=== PATIENT | female | born 1970 | race African-American/Black ===

== ENCOUNTER 2017-04-15 20:11 | Emergency (ER) | payer BC ==
[~2017-04-15] VITALS: Ht 160 cm; Wt 90.7 kg
[2017-04-15 20:30] VITALS: BP 134/93
[2017-04-15] MEDS ORDERED: LEVO500T59 PO (20:30)
[2017-04-15] MEDS ORDERED: HYDR-971 PO (20:30)
--- NOTE | 2017-04-15 20:30 | PHYS DOC ---
Adult General Chief Complaint Chief Complaint: SKIN PROBLEM HPI HPI Patient is a 47 year old female with a history of eczema and asthma presents to the ED complaining of rash to right side of face x 3 days. States it started on her cheek and is starting to spread. Describes the pain as sharp. Rates as 7/ 10. Associated symptoms include warmth and redness. States she has had similar symptoms in the past and last time her symptoms improved with antibiotics. States she just moved here. Denies swelling, laceration, chest pain, weakness, fever, tongue swelling, difficulty swallowing, or n/v. Review of Systems Review of Systems Constitutional: Denies fever or chills [] Eyes: Denies change in visual acuity, redness, or eye pain [] HENT: Denies nasal congestion or sore throat [] Respiratory: Denies cough or shortness of breath [] Cardiovascular: No additional information not addressed in HPI [] GI: Denies abdominal pain, nausea, vomiting, bloody stools or diarrhea [] : Denies dysuria or hematuria [] Musculoskeletal: Denies back pain or joint pain [] Integument: Complains of rash. Denies skin lesions [] Neurologic: Denies headache, focal weakness or sensory changes [] Endocrine: Denies polyuria or polydipsia [] All other systems were reviewed and found to be within normal limits, except as documented in this note. Allergies Allergies Allergies Coded Allergies Type Severity Reaction Last Updated Verified Sulfa (Sulfonamide Antibiotics) Allergy Unknown 04/15/17 Yes aspirin Allergy Unknown 04/15/17 Yes cephalexin Allergy Unknown 04/15/17 Yes corn Allergy Unknown 04/15/17 Yes ibuprofen Allergy Unknown 04/15/17 Yes latex Allergy Unknown 04/15/17 Yes Physical Exam Physical Exam Constitutional: Well developed, well nourished, no acute distress, non-toxic appearance. [] HENT: Normocephalic, atraumatic, bilateral external ears normal, oropharynx moist, no oral exudates, nose normal. [] Eyes: PERRLA, EOMI, conjunctiva normal, no discharge. [] Neck: Normal range of motion, no tenderness, supple, no stridor. [] Cardiovascular:Heart rate regular rhythm, no murmur [] Lungs & Thorax: Bilateral breath sounds clear to auscultation [] Skin: Warm, dry. MILD ERYTHEMATOUS, WARM, 3X2 CM AREA TO RIGHT CHEEK CONSISTENT WITH CELLULITIS. NO ABSCESS OR FLUCTUANCE. Neurologic: Alert and oriented X 3, normal motor function, normal sensory function, no focal deficits noted. [] Psychologic: Affect normal, judgement normal, mood normal. [] Current Patient Data Vital Signs Vital Signs Date Time Temp Pulse Resp B/P (MAP) Pulse Ox O2 Delivery O2 Flow Rate FiO2 04/15/17 20:30 98.5 97 18 134/93 (107) 97 Room Air 98.5 EKG EKG [] Radiology/Procedures Radiology/Procedures [] Course & Med Decision Making Course & Med Decision Making Pertinent Labs and Imaging studies reviewed. (See chart for details) Patient states she gets breaks in her skin due to her eczema which causes her to develop cellulitis. Tetanus up to date. Patient states last time she had the same symptoms she took levaquin from her PCP and that it relieved her symptoms. Discussed symptomatic treatment at home. Discussed follow-up and reasons to return to the ED. Patient understands and agrees with plan. at bedside. Dragon Disclaimer Dragon Disclaimer This electronic medical record was generated, in whole or in part, using a voice recognition dictation system. Departure Departure Impression: Primary Impression: Cellulitis Disposition: 01 HOME, SELF-CARE Condition: IMPROVED Referrals: BELKIS PRECIADO MD Patient Instructions: Cellulitis Scripts Hydrocodone/Apap 5-325 (NORCO 5-325 TABLET) 1 Each Tablet 1 TAB PO TID, #8 TAB Prov: KELVIN HERNANDEZ 04/15/17 Levofloxacin (LEVAQUIN) 500 Mg Tablet 1 TAB PO DAILY for 10 Days, #10 TAB Prov: KELVIN HERNANDEZ 04/15/17 KELVIN HERNANDEZ Apr 15, 2017 20:30
== END 2017-04-15 20:50 | disposition home or self-care (01) ==
LOC: ER 20:11
DX: L03.211 Cellulitis of face (principal); J45.909 Unspecified asthma, uncomplicated; Z88.2 Allergy status to sulfonamides; Z88.6 Allergy status to analgesic agent; Z91.040 Latex allergy status; Z91.018 Allergy to other foods
CPT/HCPCS: 99283

== ENCOUNTER 2017-06-04 12:26 | Inpatient (IN) | payer BC ==
[2017-06-04 13:21] LABS: ADD MAN DIFF? NO
[2017-06-04 13:25] LABS: BASO # 0.1 x10^3/uL (0.0-0.2); BASO % 1 % (0-3); EOS # 0.3 x10^3/uL (0.0-0.7); EOS % 2 % (0-3); HEMATOCRIT 38.6 % (36.0-47.0); HEMOGLOBIN 12.8 g/dL (12.0-15.5); LYMPH # 1.2 x10^3/uL (1.0-4.8); LYMPH % 10 % (24-48); MEAN CORPUSCULAR HEMOGLOBIN 30 pg (25-35); MEAN CORPUSCULAR HGB CONC 33 g/dL (31-37); MEAN CORPUSCULAR VOLUME 91 fL (79-100); MONO # 0.9 x10^3/uL (0.0-1.1); MONO % 8 % (0-9); NEUT % 80 % (31-73); PLATELET COUNT 291 x10^3/uL (140-400); RED BLOOD COUNT 4.24 x10^6/uL (3.50-5.40); RED CELL DISTRIBUTION WIDTH 13.9 % (11.5-14.5); WHITE BLOOD COUNT 12.4 x10^3/uL (4.0-11.0)
[2017-06-04] MEDS: ONDANSETRON PF 4 MG/2 ML VIAL. IV ×2 (13:29→23:40)
[2017-06-04] MEDS: fentaNYL PF VIAL 100 MCG/2 ML VIAL IV ×2 (13:30→15:44)
[2017-06-04 13:39] LABS: ANION GAP 8 (6-14); BLOOD UREA NITROGEN 21 mg/dL (7-20); BUN/CREATININE RATIO 26 (6-20); CALCIUM 8.6 mg/dL (8.5-10.1); CARBON DIOXIDE 29 mmol/L (21-32); CHLORIDE 103 mmol/L (98-107); CREATININE 0.8 mg/dL (0.6-1.0); GFR 92.6; GLUCOSE 70 mg/dL (70-99); POTASSIUM 3.9 mmol/L (3.5-5.1); SODIUM 140 mmol/L (136-145)
[2017-06-04 13:41] LABS: D-DIMER 0.41 ug/mlFEU (0.00-0.50)
[2017-06-04 13:42] LABS: ALBUMIN 3.6 g/dL (3.4-5.0); ALBUMIN/GLOBULIN RATIO 0.8 (1.0-1.7); ALK PHOS 72 U/L (46-116); ALT (SGPT) 41 U/L (14-59); AST (SGOT) 26 U/L (15-37); LIPASE 193 U/L (73-393); MAGNESIUM 1.9 mg/dL (1.8-2.4); TOTAL BILIRUBIN 0.9 mg/dL (0.2-1.0); TOTAL PROTEIN 7.9 g/dL (6.4-8.2)
[2017-06-04 13:45] LABS: BILIRUBIN,URINE NEGATIVE (NEG); CLARITY,URINE CLEAR; COLOR,URINE YELLOW; GLUCOSE,URINE NEGATIVE (NEG); NITRITE,URINE NEGATIVE (NEG); PROTEIN,URINE NEGATIVE (NEG-TRACE); UROBILINOGEN,URINE 0.2 mg/dL (0.2 mg/dL)
[2017-06-04 13:47] LABS: TROPONINI < 0.017 ng/mL (0.000-0.055)
[2017-06-04 13:51] LABS: NT-PRO BNP 57 pg/mL (0-124)
[2017-06-04 13:51] LABS: CKMB INDEX 0.3 % (0-4); CKMB MASS 0.6 ng/mL (0.0-3.6); CREATINE KINASE 175 U/L (26-192)
[2017-06-04 14:02] LABS: BACTERIA,URINE FEW /HPF (0-FEW); RBC,URINE 0 /HPF (0-2); SQUAMOUS EPITHELIAL CELL,UR FEW /LPF; WBC,URINE 0 /HPF (0-4)
[2017-06-04] MEDS ORDERED: fentaNYL PF VIAL 100 MCG/2 ML VIAL IV (16:30)
[2017-06-04] MEDS ORDERED: ONDANSETRON PF 4 MG/2 ML VIAL. IV (16:30)
[2017-06-04] MEDS: ACETAMINOPHEN 325 MG TABLET. PO (16:59)
[2017-06-04] MEDS ORDERED: hydrALAZINE 20 MG/ML VIAL. IVP (17:00)
[2017-06-04] MEDS ORDERED: traMADol 50 MG TABLET PO (17:00)
[2017-06-04] MEDS ORDERED: ACETAMINOPHEN 325 MG TABLET. PO (17:00)
[2017-06-04] MEDS ORDERED: DOCUSATE SODIUM 100 MG CAPSULE. PO (17:00)
[2017-06-04 17:41] LABS: THYROID STIM HORMONE (TSH) 1.042 uIU/mL (0.358-3.74)
[2017-06-04] MEDS: IV NORMAL SALINE 1000ML BAG 1,000 ML IV (17:52)
[2017-06-04 18:51] LABS: SEDIMENTATION RATE 25 (0-25)
[2017-06-04 19:55] LABS: TROPONINI < 0.017 ng/mL (0.000-0.055)
[2017-06-04] MEDS: ALBUTEROL SULFATE 2.5 MG/3 ML NEBU. NEB (20:00)
[2017-06-04] MEDS: BUDESONIDE 0.5 MG/2 ML NEBU. NEB (20:40)
[2017-06-04] MEDS: rOPINIRole 1 MG TABLET. PO (20:48)
[2017-06-04] MEDS: ZOLPIDEM 5 MG TABLET. PO (20:48)
[2017-06-04] MEDS ORDERED: NON FORMULARY ITEM (Fluticasone/Salmeterol (Advair 250-50 Diskus) 1 PUFF) IH (21:00)
[2017-06-04 22:41] LABS: TROPONINI < 0.017 ng/mL (0.000-0.055)
[2017-06-04] MEDS: MORPHINE SULFATE 2 MG/ML DISP.SYRIN. IV (23:31)
[2017-06-05] MEDS: IV NORMAL SALINE 1000ML BAG 1,000 ML IV ×2 (00:17→08:04)
[2017-06-05 05:53] LABS: ADD MAN DIFF? NO
[2017-06-05 06:12] LABS: BASO % 0 % (0-3); EOS # 0.1 x10^3/uL (0.0-0.7); EOS % 2 % (0-3); HEMATOCRIT 34.8 % (36.0-47.0); HEMOGLOBIN 11.6 g/dL (12.0-15.5); LYMPH # 0.9 x10^3/uL (1.0-4.8); LYMPH % 11 % (24-48); MEAN CORPUSCULAR HEMOGLOBIN 31 pg (25-35); MEAN CORPUSCULAR HGB CONC 34 g/dL (31-37); MEAN CORPUSCULAR VOLUME 91 fL (79-100); MONO # 0.8 x10^3/uL (0.0-1.1); MONO % 10 % (0-9); NEUT # 6.8 x10^3uL (1.8-7.7); NEUT % 78 % (31-73); PLATELET COUNT 232 x10^3/uL (140-400); RED BLOOD COUNT 3.82 x10^6/uL (3.50-5.40); RED CELL DISTRIBUTION WIDTH 13.2 % (11.5-14.5); WHITE BLOOD COUNT 8.7 x10^3/uL (4.0-11.0)
[2017-06-05 06:18] LABS: ANION GAP 6 (6-14); BLOOD UREA NITROGEN 14 mg/dL (7-20); CALCIUM 8.4 mg/dL (8.5-10.1); CARBON DIOXIDE 29 mmol/L (21-32); CHLORIDE 103 mmol/L (98-107); CREATININE 0.7 mg/dL (0.6-1.0); GFR 108.1; GLUCOSE 110 mg/dL (70-99); POTASSIUM 3.7 mmol/L (3.5-5.1); SODIUM 138 mmol/L (136-145)
[2017-06-05] MEDS: ALBUTEROL SULFATE 2.5 MG/3 ML NEBU. NEB (07:13)
[2017-06-05] MEDS ORDERED: ALBUTEROL SULFATE 2.5 MG/3 ML NEBU. NEB (08:00)
[2017-06-05] MEDS: BUDESONIDE 0.5 MG/2 ML NEBU. NEB (08:09)
[2017-06-05] MEDS: HYDROcodone/APAP 5/325MG 1 TAB TABLET PO (11:46)
[2017-06-05] MEDS: PANTOPRAZOLE 40 MG TABLET.DR. PO (15:20)
== END 2017-06-05 16:35 | disposition home or self-care (01) | DRG 204 ==
LOC: ER 12:26 → 6 SOUTH 15:10
DX: R07.81 Pleurodynia (principal); K91.1 Postgastric surgery syndromes; R07.89 Other chest pain; G25.81 Restless legs syndrome; J31.0 Chronic rhinitis; J45.909 Unspecified asthma, uncomplicated; K52.9 Noninfective gastroenteritis and colitis, unspecified; L30.9 Dermatitis, unspecified; M19.90 Unspecified osteoarthritis, unspecified site; Z82.49 Family history of ischemic heart disease and other diseases of the circulatory system; Z87.891 Personal history of nicotine dependence; Z88.0 Allergy status to penicillin; Z88.6 Allergy status to analgesic agent; Z90.710 Acquired absence of both cervix and uterus; Z98.84 Bariatric surgery status; Z88.2 Allergy status to sulfonamides; Z88.8 Allergy status to other drugs, medicaments and biological substances; Z91.040 Latex allergy status
CPT/HCPCS: 36415; 71045; 80048; 80053; 81001; 82553; 83690; 83735; 83880; 84443; 84484; 85025; 85379; 85651; 93005; 93306; 94640; 96374; 96375; 96376; 99285-25; J2270; J2405; J3010; J7030; J7613; J7626

== ENCOUNTER 2017-08-29 16:38 | Emergency (ER) | payer BC ==
[2017-08-29 17:35] LABS: ADD MAN DIFF? NO
[2017-08-29 17:37] LABS: BASO % 0 % (0-3); EOS # 0.2 x10^3/uL (0.0-0.7); EOS % 2 % (0-3); HEMATOCRIT 38.5 % (36.0-47.0); LYMPH % 9 % (24-48); MEAN CORPUSCULAR HEMOGLOBIN 31 pg (25-35); MEAN CORPUSCULAR HGB CONC 34 g/dL (31-37); MEAN CORPUSCULAR VOLUME 91 fL (79-100); MONO # 1.1 x10^3/uL (0.0-1.1); MONO % 10 % (0-9); NEUT % 78 % (31-73); PLATELET COUNT 254 x10^3/uL (140-400); RED BLOOD COUNT 4.23 x10^6/uL (3.50-5.40); RED CELL DISTRIBUTION WIDTH 13.9 % (11.5-14.5); WHITE BLOOD COUNT 10.2 x10^3/uL (4.0-11.0)
[2017-08-29 17:49] LABS: PROTHROMBIN TIME PATIENT 13.1 SEC (11.7-14.0)
[2017-08-29] MEDS: NITROGLYCERIN SUBLINGUAL 0.4 MG BOTTLE OF 25. SL (17:53)
[2017-08-29] MEDS: ACETAMINOPHEN 500 MG TABLET PO (17:53)
[2017-08-29 17:58] LABS: D-DIMER 1.37 ug/mlFEU (0.00-0.50)
[2017-08-29 18:36] LABS: ANION GAP 9 (6-14); BLOOD UREA NITROGEN 11 mg/dL (7-20); BUN/CREATININE RATIO 16 (6-20); CALCIUM 8.7 mg/dL (8.5-10.1); CARBON DIOXIDE 28 mmol/L (21-32); CHLORIDE 102 mmol/L (98-107); CREATININE 0.7 mg/dL (0.6-1.0); GFR 108.1; GLUCOSE 135 mg/dL (70-99); SODIUM 139 mmol/L (136-145)
[2017-08-29 18:42] LABS: TROPONINI < 0.017 ng/mL (0.000-0.055)
[2017-08-29 18:43] LABS: ALBUMIN 3.5 g/dL (3.4-5.0); ALBUMIN/GLOBULIN RATIO 0.8 (1.0-1.7); ALK PHOS 65 U/L (46-116); ALT (SGPT) 30 U/L (14-59); AST (SGOT) 18 U/L (15-37); LIPASE 104 U/L (73-393); MAGNESIUM 1.8 mg/dL (1.8-2.4); TOTAL BILIRUBIN 1.2 mg/dL (0.2-1.0); TOTAL PROTEIN 7.7 g/dL (6.4-8.2)
[2017-08-29 18:47] LABS: THYROID STIM HORMONE (TSH) 0.286 uIU/mL (0.358-3.74)
[2017-08-29] MEDS ORDERED: CONTRAST GIVEN MC (19:00)
[2017-08-29] MEDS: IOHEXOL 300 MG/ML 100ML VIAL. IV (19:01)
[2017-08-29 19:12] LABS: PROCALCITONIN < 0.10 ng/mL (0.00-0.10)
[2017-08-29] MEDS ORDERED: IV NORMAL SALINE 1000ML BAG 1,000 ML IV (19:15)
[2017-08-29] MEDS ORDERED: IPRATRPIUM/ALBUTEROL 0.5/2.5MG 3 ML NEBU. NEB (19:15)
[2017-08-30 10:08] LABS: NEGATIVE OBC STREP NEG; POSITIVE OBC STREP POS
== END 2017-08-29 20:06 | disposition left against medical advice (07) ==
LOC: ER 20:06
DX: R07.89 Other chest pain (principal); R50.9 Fever, unspecified; R00.0 Tachycardia, unspecified; M19.90 Unspecified osteoarthritis, unspecified site; J45.909 Unspecified asthma, uncomplicated; Z98.84 Bariatric surgery status; Z90.710 Acquired absence of both cervix and uterus; Z88.2 Allergy status to sulfonamides; Z88.6 Allergy status to analgesic agent; Z88.1 Allergy status to other antibiotic agents; Z91.040 Latex allergy status; Z91.018 Allergy to other foods
CPT/HCPCS: 36415; 71045; 71275; 80053; 83690; 83735; 84145; 84443; 84484; 85025; 85379; 85610; 87070; 87880; 93005; 99285-25; Q9967

== ENCOUNTER → 2018-09-03 | Day surgery (SDC) | payer BC, MEDICARE ==
[~2018-09-03] MED LIST: ALBU2.5V8 IH; ESZO3TAB28 PO; FLUT1DIS3 IH; HYDR-3164 PO; IV RINGERS,LACTATED 1000ML 1,000 ML IV SCH; LEVO500T59 PO; LIDOCAINE 1% PF 2 ML VIAL. ID PRN; LIDOCAINE 2% PF 5 ML VIAL. ONE; MIDAZOLAM HCL/PF 2 MG/2 ML VIAL. IV PRN; PANT20TA2 PO; PROPOFOL 100 ML IV ONE; ROPI0.5T PO; fentaNYL PF VIAL 100 MCG/2 ML VIAL IV PRN
[2018-09-03 10:00] VITALS: BP 132/72
--- NOTE | 2018-09-04 15:06 | PATHOLOGY ---
[facility] Accession Number: [id number] . 01 Material submitted: . PART A: gastrointestinal site - ANASTOMOTIC GASTRIC BX PART B: esophagus - DISTAL ESOPHAGUS. Modifiers: distal PART C: esophagus - PROXIMAL ESOPHAGEAL BX. Modifiers: proximal PART D: colon - RANDOM COLON BX . 01 Clinical history: . GERD, dysphagia, gastric bypass, hematochezia . 02 Diagnosis: A. Gastric anastomotic biopsy: - Segment of gastric and contiguous small intestine mucosa showing moderate acute and chronic inflammation. . B. Esophageal biopsy, distal esophagus: - Segment of hyperplastic squamous esophageal mucosa. . C. Esophageal biopsies, proximal esophagus: - Segments of squamous esophageal mucosa showing no diagnostic abnormalities. . D. Colonic mucosa, random colon biopsies: - No diagnostic abnormalities. LB/09/04/2018 . 02 Comment: Sections of the gastric anastomotic biopsy reveal a segment of gastric and contiguous small intestine mucosa showing moderate acute and chronic inflammation. A properly controlled immunoperoxidase stain for Helicobacter is negative for Helicobacter organisms. . Sections of the distal esophageal biopsy reveal a tangentially oriented segment of hyperplastic squamous esophageal mucosa. There is no evidence of an eosinophilic esophagitis, Marti's change, dysplasia, or malignancy. . Sections of the proximal esophageal biopsy reveal segments of squamous esophageal mucosa showing no diagnostic abnormalities. There is no evidence of an eosinophilic esophagitis. . Sections of the random colon biopsy reveal multiple segments of colonic mucosa. There is no evidence of a chronic destructive colitis, lymphocytic colitis, or collagenous colitis. (JPM/db; 09/04/2018) . Special stain performed: Immunoperoxidase stain for Helicobacter on A1. . 02 Electronically signed: . Chicho Field MD, Pathologist NPI- [id number] . 01 Gross description: . A. Received in formalin labeled "Gutierrez, Awilda, anastomotic BX-gastric," is a single segment of guadalupe soft tissue measuring 0.3 cm in maximum dimension. The specimen is entirely submitted in cassette A1. . B. Received in formalin labeled "Awilda Gutierrez, distal esophagus BX, rule out EOE," is a single segment of guadalupe soft tissue measuring 0.5 cm in maximum dimension. The specimen is entirely submitted in cassette B1. . C. Received in formalin labeled "Awilda Gutierrez, proximal esophageal BX," are 3 segments of guadalupe soft tissue measuring 0.8 x 0.8 x 0.1 cm in aggregate dimensions and ranging from 0.2 to 0.6 cm in maximum dimension. The specimen is submitted entirely in cassette C1. . D. Received in formalin labeled "Awilda Gutierrez, random colon BX," are multiple segments of guadalupe soft tissue measuring 1.9 x 0.4 x 0.1 cm in aggregate dimensions. The specimen is filtered and entirely submitted in cassette D1. (TSD; 09/03/2018) TOB/TOB . 02 Pathologist provided ICD-10: K29.00, K29.50, K21.9, R13.10, K92.1 . 02 CPT . 455921, 302313, 309870, 633712, [id number] Specimen Comment: A courtesy copy of this report has been sent to Specimen Comment: [phone], . Specimen Comment: Report sent to / DR BENITEZ Performed at: 01 [facility] [address], [place], [place] [id number] MD Boni Hill MD Phone: [phone] Performed at: 02 [facility] [address] [place], [place] [id number] MD Chicho Field MD Phone: [phone]
== END | disposition home or self-care (01) ==
LOC: SURG 07:15
PROVIDERS: ATTEND Internal Medicine
DX: K64.1 Second degree hemorrhoids (principal); K64.4 Residual hemorrhoidal skin tags; K28.9 Gastrojejunal ulcer, unspecified as acute or chronic, without hemorrhage or perforation; K22.8 Other specified diseases of esophagus; K29.50 Unspecified chronic gastritis without bleeding; K29.00 Acute gastritis without bleeding; Z98.84 Bariatric surgery status; Z88.6 Allergy status to analgesic agent; Z88.1 Allergy status to other antibiotic agents; Z91.040 Latex allergy status; F41.9 Anxiety disorder, unspecified; D64.9 Anemia, unspecified; J45.909 Unspecified asthma, uncomplicated; M15.9 Polyosteoarthritis, unspecified; Z87.891 Personal history of nicotine dependence; Z79.899 Other long term (current) drug therapy; Z90.710 Acquired absence of both cervix and uterus; Z98.890 Other specified postprocedural states; K21.9 Gastro-esophageal reflux disease without esophagitis; Z88.2 Allergy status to sulfonamides; Z88.5 Allergy status to narcotic agent
CPT/HCPCS: 43239; 45380; 88305; 88342; J2001; J2704

== ENCOUNTER 2019-01-18 14:06 | Inpatient (IN) | payer BC, OTHER ==
[~2019-01-18] VITALS: Ht 160 cm; Wt 102.1 kg
[~2019-01-18 14:06] MED LIST changes: -ALBU2.5V8 IH; -IV RINGERS,LACTATED 1000ML 1,000 ML IV SCH; -LIDOCAINE 1% PF 2 ML VIAL. ID PRN; -LIDOCAINE 2% PF 5 ML VIAL. ONE; -MIDAZOLAM HCL/PF 2 MG/2 ML VIAL. IV PRN; -PROPOFOL 100 ML IV ONE; +PROVENTIL HFA6.7 GM IH; -fentaNYL PF VIAL 100 MCG/2 ML VIAL IV PRN
--- NOTE | 2019-01-18 14:32 | PHYS DOC ---
Past Medical History Past Medical History: Arthritis, Asthma Additional Past Medical Histor: ECZEMA, RESTLESS LEGS Past Surgical History: Hysterectomy, Other Additional Past Surgical Histo: gastric bypass, abd lap, thigh lifts Alcohol Use: Occasionally Drug Use: None Adult General Chief Complaint Chief Complaint: CHEST PAIN [facility] HPI Patient is a 48-year-old female who presents with complaint of weeklong history of chest discomfort that is progressively getting worse over time. She describes pain in her chest is like a pressure and today she feels like she has some pressure and heaviness in her left arm. She denies any nausea, vomiting or diaphoresis. She does also indicate that she has had some shortness of breath is worsened with exertion. Patient does have history of "fluid around her heart". Patient rates the pain at a 6 out of 10 currently. She does indicate the pain is worsened with exertion and with lying down flat.[] Review of Systems Review of Systems Constitutional: Denies fever or chills [] Respiratory: Denies cough or shortness of breath [] Cardiovascular: No additional information not addressed in HPI [] GI: Denies abdominal pain, nausea, vomiting or diarrhea [] Integument: Denies rash or skin lesions [] Neurologic: Denies headache, focal weakness or sensory changes [] All other systems were reviewed and found to be within normal limits, except as documented in this note. Allergies Allergies Allergies Coded Allergies Type Severity Reaction Last Updated Verified Sulfa (Sulfonamide Antibiotics) Allergy Intermediate 09/03/18 Yes aspirin Allergy Intermediate 09/03/18 Yes cephalexin Allergy Intermediate 09/03/18 Yes corn Allergy Intermediate 09/03/18 Yes doxycycline Allergy Intermediate 09/03/18 Yes ibuprofen Allergy Intermediate 09/03/18 Yes latex Allergy Intermediate 09/03/18 Yes Physical Exam Physical Exam Constitutional: Well developed, well nourished, no acute distress, non-toxic appearance. [] HENT: Normocephalic, atraumatic, bilateral external ears normal, oropharynx moist, no oral exudates, nose normal. [] Eyes: PERRLA, EOMI, conjunctiva normal, no discharge. [] Neck: Normal range of motion, no tenderness, supple, no stridor. [] Cardiovascular:Heart rate regular rhythm, no murmur [] Lungs & Thorax: Bilateral breath sounds clear to auscultation [] Abdomen: Bowel sounds normal, soft, no tenderness. [] Skin: Warm, dry, no erythema, no rash. [] Extremities: No tenderness, no cyanosis, no clubbing, ROM intact. [] Neurologic: Alert and oriented X 3, no focal deficits noted. [] Current Patient Data Vital Signs Vital Signs Date Time Temp Pulse Resp B/P (MAP) Pulse Ox O2 Delivery O2 Flow Rate FiO2 01/18/19 14:10 97.8 70 20 138/88 (105) 95 Room Air 97.8 Lab Values Laboratory Tests Test 01/18/19 14:39 White Blood Count 6.0 x10^3/uL (4.0-11.0) Red Blood Count 4.04 x10^6/uL (3.50-5.40) Hemoglobin 12.2 g/dL (12.0-15.5) Hematocrit 36.1 % (36.0-47.0) Mean Corpuscular Volume 89 fL (79-100) Mean Corpuscular Hemoglobin 30 pg (25-35) Mean Corpuscular Hemoglobin Concent 34 g/dL (31-37) Red Cell Distribution Width 14.2 % (11.5-14.5) Platelet Count 239 x10^3/uL (140-400) Neutrophils (%) (Auto) 62 % (31-73) Lymphocytes (%) (Auto) 26 % (24-48) Monocytes (%) (Auto) 7 % (0-9) Eosinophils (%) (Auto) 5 % (0-3) H Basophils (%) (Auto) 1 % (0-3) Neutrophils # (Auto) 3.7 x10^3/uL (1.8-7.7) Lymphocytes # (Auto) 1.5 x10^3/uL (1.0-4.8) Monocytes # (Auto) 0.4 x10^3/uL (0.0-1.1) Eosinophils # (Auto) 0.3 x10^3/uL (0.0-0.7) Basophils # (Auto) 0.0 x10^3/uL (0.0-0.2) D-Dimer (Johanny) 0.45 ug/mlFEU (0.00-0.50) Sodium Level 143 mmol/L (136-145) Potassium Level 4.2 mmol/L (3.5-5.1) Chloride Level 108 mmol/L (98-107) H Carbon Dioxide Level 29 mmol/L (21-32) Anion Gap 6 (6-14) Blood Urea Nitrogen 11 mg/dL (7-20) Creatinine 0.9 mg/dL (0.6-1.0) Estimated GFR (Cockcroft-Gault) 80.5 BUN/Creatinine Ratio 12 (6-20) Glucose Level 101 mg/dL (70-99) H Calcium Level 8.8 mg/dL (8.5-10.1) Magnesium Level 1.7 mg/dL (1.8-2.4) L Total Bilirubin 0.7 mg/dL (0.2-1.0) Aspartate Amino Transferase (AST) 31 U/L (15-37) Alanine Aminotransferase (ALT) 38 U/L (14-59) Alkaline Phosphatase 61 U/L (46-116) Troponin I Quantitative < 0.017 ng/mL (0.000-0.055) JV-Dzo-F-Type Natriuretic Peptide 94 pg/mL (0-124) Total Protein 7.2 g/dL (6.4-8.2) Albumin 3.4 g/dL (3.4-5.0) Albumin/Globulin Ratio 0.9 (1.0-1.7) L Laboratory Tests 01/18/19 14:39 Laboratory Tests 01/18/19 14:39 EKG EKG [] Interpretation Time: EKG demonstrates normal sinus rhythm with rate of 67. Radiology/Procedures Radiology/Procedures [] Impressions: PROCEDURE: PORTABLE CHEST 1V EXAM: Chest, single view. HISTORY: Chest pain. COMPARISON: 08/29/2017 FINDINGS: A single view of the chest is obtained. There is no infiltrate, pleural effusion or pneumothorax. The heart is normal in size. There is linear atelectasis or scarring within the left lateral mid to lower thorax. IMPRESSION: No acute pulmonary finding. Electronically signed by: Nadiya Cheatham MD (01/18/2019 2:42 PM) [facility] Course & Med Decision Making Course & Med Decision Making Pertinent Labs and Imaging studies reviewed. (See chart for details) [] Dragon Disclaimer Dragon Disclaimer This electronic medical record was generated, in whole or in part, using a voice recognition dictation system. Departure Departure Impression: Primary Impression: Chest pain Disposition: 09 ADMITTED INPATIENT Admitting Physician: CY (Dr. Hunter) Condition: IMPROVED Referrals: SAMINA BENITEZ (PCP) Problem Qualifiers Primary Impression: Chest pain Chest pain type: unspecified Qualified Codes: R07.9 - Chest pain, unspecified HEATHER QUINONES Jr. DO Jan 18, 2019 14:32
--- NOTE | 2019-01-18 14:45 | RAD ---
EXAM: Chest, single view. HISTORY: Chest pain. COMPARISON: 08/29/2017 FINDINGS: A single view of the chest is obtained. There is no infiltrate, pleural effusion or pneumothorax. The heart is normal in size. There is linear atelectasis or scarring within the left lateral mid to lower thorax. IMPRESSION: No acute pulmonary finding. Electronically signed by: Nadiya Cheatham MD (01/18/2019 2:42 PM) [facility]
[2019-01-18 14:57] LABS: BASO % 1 % (0-3); EOS # 0.3 x10^3/uL (0.0-0.7); EOS % 5 % (0-3); HEMATOCRIT 36.1 % (36.0-47.0); HEMOGLOBIN 12.2 g/dL (12.0-15.5); LYMPH # 1.5 x10^3/uL (1.0-4.8); LYMPH % 26 % (24-48); MEAN CORPUSCULAR HEMOGLOBIN 30 pg (25-35); MEAN CORPUSCULAR HGB CONC 34 g/dL (31-37); MEAN CORPUSCULAR VOLUME 89 fL (79-100); MONO # 0.4 x10^3/uL (0.0-1.1); MONO % 7 % (0-9); NEUT # 3.7 x10^3/uL (1.8-7.7); NEUT % 62 % (31-73); PLATELET COUNT 239 x10^3/uL (140-400); RED BLOOD COUNT 4.04 x10^6/uL (3.50-5.40); RED CELL DISTRIBUTION WIDTH 14.2 % (11.5-14.5)
[2019-01-18 15:01] LABS: CALCIUM 8.8 mg/dL (8.5-10.1); CREATININE 0.9 mg/dL (0.6-1.0); GFR 80.5; POTASSIUM 4.2 mmol/L (3.5-5.1)
[2019-01-18 15:07] LABS: ALBUMIN 3.4 g/dL (3.4-5.0); ALBUMIN/GLOBULIN RATIO 0.9 (1.0-1.7); MAGNESIUM 1.7 mg/dL (1.8-2.4); TOTAL BILIRUBIN 0.7 mg/dL (0.2-1.0); TOTAL PROTEIN 7.2 g/dL (6.4-8.2)
[2019-01-18] MEDS ORDERED: MORPHINE SULFATE 2 MG/ML VIAL. IV PRN (16:15)
[2019-01-18] MEDS ORDERED: ONDANSETRON PF 4 MG/2 ML VIAL. IV PRN (16:15)
[2019-01-18 19:50] VITALS: BP 123/78
--- NOTE | 2019-01-18 19:53 | HP ---
ADMIT DATE: 01/18/2019 CHIEF COMPLAINT: Chest pain. HISTORY OF PRESENT ILLNESS: The patient is a pleasant 48-year-old female who had been admitted previously for chest pain. Once again, she presents with chest pain. I think she has also been seen at for chest pain. She actually just had a stress test last week for chest pain. Her chest pain workup is all negative. Nevertheless, she is concerned that she might have fluid in her heart. I discussed the case with ER physician. We are going to admit the patient and reconsult Cardiology. PAST MEDICAL HISTORY: Chest pain, arthritis, asthma, eczema, restless legs, hysterectomy, gastric bypass, abdominal pain, and thigh lifts. ALLERGIES: SULFA, ASPIRIN, CEPHALEXIN, CODEINE, DOXYCYCLINE, IBUPROFEN, AND LATEX. FAMILY HISTORY: Coronary artery disease. SOCIAL HISTORY: She is . She does not drink, smoke, or take drugs. MEDICATIONS: Reviewed. Please refer to the MRAD. REVIEW OF SYSTEMS: GENERAL: No history of weight change, weakness or fevers. SKIN: No bruising, hair changes or rashes. EYES: No blurred, double or loss of vision. NOSE AND THROAT: No history of nosebleeds, hoarseness or sore throat. HEART: She complains of chest pain. LUNGS: Denies cough, hemoptysis, wheezing or shortness of breath. GASTROINTESTINAL: Denies changes in appetite, nausea, vomiting, diarrhea or constipation. GENITOURINARY: No history of frequency, urgency, hesitancy or nocturia. NEUROLOGIC: Denies history of numbness, tingling, tremor or weakness. PSYCHIATRIC: No history of panic, anxiety or depression. ENDOCRINE: No history of heat or cold intolerance, polyuria or polydipsia. EXTREMITIES: Denies muscle weakness, joint pain, pain on walking or stiffness. PHYSICAL EXAMINATION: VITALS: Within normal limits and are stable. GENERAL: No apparent distress. Alert and oriented. HEENT: Head is normocephalic, atraumatic, pupils were equally round and reactive to light and accommodation. NECK: Supple, no JVD, no thyromegaly was noted. LUNGS: Clear to auscultation in all lung hannon without rhonchi or wheezing. HEART: RRR, S1, S2 present. Peripheral pulses intact, no obvious murmurs were noted. ABDOMEN: Soft, nontender. Positive bowel sounds no organomegaly, normal bowel sounds. EXTREMITIES: Without any cyanosis, clubbing, or edema. Pedal pulses intact, Homans sign is negative. NEUROLOGIC: Normal speech, normal tone. A & O x3, moves all extremities, no obvious focal deficits. PSYCHIATRIC: Normal affect, normal mood. Stable. SKIN: No ulcerations or rashes, good skin turgor, no jaundice. VASCULAR: Good capillary refill, neurovascular bundle appears to be intact. LABORATORY DATA: Troponin is 0. Hematology is normal. ASSESSMENT AND PLAN: Chest pain. The patient has been admitted. We will consult Cardiology. Serial enzymes, serial EKGs, and echocardiogram. Deep venous thrombosis prophylaxis. Home meds. MARIELA FERRELL DO DR: KAYLYNN/anuradha JOB#: [id number] / [id number]
[2019-01-18] MEDS ORDERED: ALBUTEROL SULFATE 2.5 MG/3 ML NEBU. NEB PRN (20:15)
[2019-01-18] MEDS: ZOLPIDEM 5 MG TABLET. PO SCH ×3 (21:00→21:39)
[2019-01-18 23:45] VITALS: BP 110/65
[2019-01-19] MEDS ORDERED: PANTOPRAZOLE 40 MG TABLET.DR. PO PRN (02:00)
[2019-01-19 03:30] VITALS: BP 110/60
[2019-01-19 06:55] LABS: BILIRUBIN,URINE NEGATIVE (NEG); CLARITY,URINE CLEAR; COLOR,URINE YELLOW; NITRITE,URINE NEGATIVE (NEG); PH,URINE 5.5; PROTEIN,URINE NEGATIVE (NEG-TRACE)
[2019-01-19 07:00] VITALS: BP 141/69
[2019-01-19 07:24] LABS: SQUAMOUS EPITHELIAL CELL,UR MANY /LPF
[2019-01-19 07:25] LABS: BACTERIA,URINE MODERATE /HPF (0-FEW); RBC,URINE 0 /HPF (0-2)
[2019-01-19] MEDS ORDERED: PANTOPRAZOLE 40 MG TABLET.DR. PO SCH (07:30)
[2019-01-19] MEDS ORDERED: BUDESONIDE 0.5 MG/2 ML NEBU. NEB SCH (08:00)
[2019-01-19] MEDS: ALBUTEROL SULFATE 2.5 MG/3 ML NEBU. NEB SCH ×2 (08:00→12:00)
[2019-01-19] MEDS ORDERED: ONDANSETRON PF 4 MG/2 ML VIAL. IVP PRN (08:45)
[2019-01-19] MEDS ORDERED: ACETAMINOPHEN 500 MG TABLET PO PRN (08:45)
--- NOTE | 2019-01-19 10:11 | PDOC3 ---
Discharge Summary Visit Information Date of Admission: Jan 18, 2019 Date of Discharge: Jan 19, 2019 Admitting Diagnosis Comment: non cardiac CP Brief Hospital Course Allergies Allergies Coded Allergies Type Severity Reaction Last Updated Verified Sulfa (Sulfonamide Antibiotics) Allergy Intermediate 09/03/18 Yes aspirin Allergy Intermediate 09/03/18 Yes cephalexin Allergy Intermediate 09/03/18 Yes corn Allergy Intermediate 09/03/18 Yes doxycycline Allergy Intermediate 09/03/18 Yes ibuprofen Allergy Intermediate 09/03/18 Yes latex Allergy Intermediate 09/03/18 Yes Vital Signs Vital Signs Date Time Temp Pulse Resp B/P (MAP) Pulse Ox O2 Delivery O2 Flow Rate FiO2 01/19/19 08:34 96 Room Air 01/19/19 03:30 98.1 74 20 110/60 (77) 98.1 Lab Results Laboratory Tests Test 01/18/19 14:39 01/18/19 19:40 01/19/19 00:01 01/19/19 06:30 White Blood Count 6.0 x10^3/uL (4.0-11.0) Red Blood Count 4.04 x10^6/uL (3.50-5.40) Hemoglobin 12.2 g/dL (12.0-15.5) Hematocrit 36.1 % (36.0-47.0) Mean Corpuscular Volume 89 fL (79-100) Mean Corpuscular Hemoglobin 30 pg (25-35) Mean Corpuscular Hemoglobin Concent 34 g/dL (31-37) Red Cell Distribution Width 14.2 % (11.5-14.5) Platelet Count 239 x10^3/uL (140-400) Neutrophils (%) (Auto) 62 % (31-73) Lymphocytes (%) (Auto) 26 % (24-48) Monocytes (%) (Auto) 7 % (0-9) Eosinophils (%) (Auto) 5 % (0-3) Basophils (%) (Auto) 1 % (0-3) Neutrophils # (Auto) 3.7 x10^3/uL (1.8-7.7) Lymphocytes # (Auto) 1.5 x10^3/uL (1.0-4.8) Monocytes # (Auto) 0.4 x10^3/uL (0.0-1.1) Eosinophils # (Auto) 0.3 x10^3/uL (0.0-0.7) Basophils # (Auto) 0.0 x10^3/uL (0.0-0.2) D-Dimer (Johanny) 0.45 ug/mlFEU (0.00-0.50) Sodium Level 143 mmol/L (136-145) Potassium Level 4.2 mmol/L (3.5-5.1) Chloride Level 108 mmol/L (98-107) Carbon Dioxide Level 29 mmol/L (21-32) Anion Gap 6 (6-14) Blood Urea Nitrogen 11 mg/dL (7-20) Creatinine 0.9 mg/dL (0.6-1.0) Estimated GFR (Cockcroft-Gault) 80.5 BUN/Creatinine Ratio 12 (6-20) Glucose Level 101 mg/dL (70-99) Calcium Level 8.8 mg/dL (8.5-10.1) Magnesium Level 1.7 mg/dL (1.8-2.4) Total Bilirubin 0.7 mg/dL (0.2-1.0) Aspartate Amino Transf (AST/SGOT) 31 U/L (15-37) Alanine Aminotransferase (ALT/SGPT) 38 U/L (14-59) Alkaline Phosphatase 61 U/L (46-116) Troponin I Quantitative < 0.017 ng/mL (0.000-0.055) < 0.017 ng/mL (0.000-0.055) < 0.017 ng/mL (0.000-0.055) VK-Ugj-V-Type Natriuretic Peptide 94 pg/mL (0-124) Total Protein 7.2 g/dL (6.4-8.2) Albumin 3.4 g/dL (3.4-5.0) Albumin/Globulin Ratio 0.9 (1.0-1.7) Urine Collection Type Unknown Urine Color Yellow Urine Clarity Clear Urine pH 5.5 Urine Specific [place] 1.020 Urine Protein Negative mg/dL (NEG-TRACE) Urine Glucose (UA) Negative mg/dL (NEG) Urine Ketones (Stick) Negative mg/dL (NEG) Urine Blood Negative (NEG) Urine Nitrite Negative (NEG) Urine Bilirubin Negative (NEG) Urine Urobilinogen Dipstick 1.0 mg/dL (0.2 mg/dL) Urine Leukocyte Esterase Negative (NEG) Urine RBC 0 /HPF (0-2) Urine WBC 1-4 /HPF (0-4) Urine Squamous Epithelial Cells Many /LPF Urine Bacteria Moderate /HPF (0-FEW) Urine Mucus Marked /LPF Laboratory Tests Test 01/18/19 14:39 01/18/19 19:40 01/19/19 00:01 01/19/19 06:30 White Blood Count 6.0 x10^3/uL (4.0-11.0) Red Blood Count 4.04 x10^6/uL (3.50-5.40) Hemoglobin 12.2 g/dL (12.0-15.5) Hematocrit 36.1 % (36.0-47.0) Mean Corpuscular Volume 89 fL (79-100) Mean Corpuscular Hemoglobin 30 pg (25-35) Mean Corpuscular Hemoglobin Concent 34 g/dL (31-37) Red Cell Distribution Width 14.2 % (11.5-14.5) Platelet Count 239 x10^3/uL (140-400) Neutrophils (%) (Auto) 62 % (31-73) Lymphocytes (%) (Auto) 26 % (24-48) Monocytes (%) (Auto) 7 % (0-9) Eosinophils (%) (Auto) 5 % (0-3) Basophils (%) (Auto) 1 % (0-3) Neutrophils # (Auto) 3.7 x10^3/uL (1.8-7.7) Lymphocytes # (Auto) 1.5 x10^3/uL (1.0-4.8) Monocytes # (Auto) 0.4 x10^3/uL (0.0-1.1) Eosinophils # (Auto) 0.3 x10^3/uL (0.0-0.7) Basophils # (Auto) 0.0 x10^3/uL (0.0-0.2) D-Dimer (Johanny) 0.45 ug/mlFEU (0.00-0.50) Sodium Level 143 mmol/L (136-145) Potassium Level 4.2 mmol/L (3.5-5.1) Chloride Level 108 mmol/L (98-107) Carbon Dioxide Level 29 mmol/L (21-32) Anion Gap 6 (6-14) Blood Urea Nitrogen 11 mg/dL (7-20) Creatinine 0.9 mg/dL (0.6-1.0) Estimated GFR (Cockcroft-Gault) 80.5 BUN/Creatinine Ratio 12 (6-20) Glucose Level 101 mg/dL (70-99) Calcium Level 8.8 mg/dL (8.5-10.1) Magnesium Level 1.7 mg/dL (1.8-2.4) Total Bilirubin 0.7 mg/dL (0.2-1.0) Aspartate Amino Transf (AST/SGOT) 31 U/L (15-37) Alanine Aminotransferase (ALT/SGPT) 38 U/L (14-59) Alkaline Phosphatase 61 U/L (46-116) Troponin I Quantitative < 0.017 ng/mL (0.000-0.055) < 0.017 ng/mL (0.000-0.055) < 0.017 ng/mL (0.000-0.055) PX-Wim-H-Type Natriuretic Peptide 94 pg/mL (0-124) Total Protein 7.2 g/dL (6.4-8.2) Albumin 3.4 g/dL (3.4-5.0) Albumin/Globulin Ratio 0.9 (1.0-1.7) Urine Collection Type Unknown Urine Color Yellow Urine Clarity Clear Urine pH 5.5 Urine Specific [place] 1.020 Urine Protein Negative mg/dL (NEG-TRACE) Urine Glucose (UA) Negative mg/dL (NEG) Urine Ketones (Stick) Negative mg/dL (NEG) Urine Blood Negative (NEG) Urine Nitrite Negative (NEG) Urine Bilirubin Negative (NEG) Urine Urobilinogen Dipstick 1.0 mg/dL (0.2 mg/dL) Urine Leukocyte Esterase Negative (NEG) Urine RBC 0 /HPF (0-2) Urine WBC 1-4 /HPF (0-4) Urine Squamous Epithelial Cells Many /LPF Urine Bacteria Moderate /HPF (0-FEW) Urine Mucus Marked /LPF Brief Hospital Course Ms. Gutierrez is a 48 old [with no personal hx CAD, comes in for CP (pls refer to colleague's full H and P). Trops x 3 neg, For echo, if normal,cleared by cards home today with no new meds,. She was out at the [employer] during my visit, HEr CXR I left a copy, nad Discharge Information Condition at Discharge: Improved, Stable Disposition/Orders: D/C to Home Scheduled Eszopiclone (Lunesta) 3 Mg Tablet, 1 TAB PO QHS, #30 Ref 1 (Reported) Entered as Reported by: BELKIS DUKES on 06/04/171756 Last Action: Converted on 01/18/192007 by ESHA ALEGRE Fluticasone/Salmeterol (Advair 250-50 Diskus) 1 Each Disk.w.dev, 1 PUFF IH HS, #3 Ref 3 (Reported) Entered as Reported by: BELKIS DUKES on 06/04/171756 Last Action: Converted on 01/18/192007 by ESHA ALEGRE Pantoprazole Sodium (Protonix) 20 Mg Tablet.dr, 40 MG PO DAILY, (Reported) Entered as Reported by: BELKIS DUKES on 06/05/17 1531 Last Action: Converted on 01/18/192007 by ESHA ALEGRE Scheduled PRN Albuterol Sulfate (Proventil Hfa Inhaler) 6.7 Gm Hfa.aer.ad, 1 PUFF IH PRN Q4HRS PRN for FOR ASTHMA, Ref 0 (Reported) Entered as Reported by: ALE SMYTH on 09/03/18 0749 Last Action: Continued on 01/18/192007 by JARED FLORES MD Jan 19, 2019 10:11
[2019-01-19 11:00] VITALS: BP 108/78
[2019-01-19] MEDS ORDERED: MAGNESIUM SULFATE 2GM 50 ML IV ONE (11:00)
--- NOTE | 2019-01-19 11:25 | EKG ---
[facility] [address] [place] [address] Test Date: 2019-01-18 Test Time: 14:13:54 Pat Name: ISAI JOSEPH Department: Room: 263 1 Gender: F [employer]per: : 1970 Requested By: HEATHER QUINONES Order Number: [id number] Reading MD: Theo Pierson MD Measurements Intervals Horner Rate: 67 P: 24 ME: 166 QRS: 16 QRSD: 78 T: 90 QT: 390 QTc: 415 Interpretive Statements SINUS RHYTHM T ABNORMALITY IN HIGH LATERAL LEADS Electronically Signed On 01-28-2019 10:24:35 CDT by Theo Pierson MD
[2019-01-19 15:00] VITALS: BP 142/87
--- NOTE | 2019-01-19 15:11 | PDOC2 ---
CONSULT Date of Consult Date of Consult DATE: 01/19/19 TIME: 15:04 Reason for Consult Reason for Consult: Chest pain Referring Physician Referring Physician: Dr. Hunter Identification/Chief Complaint Chief Complaint Chest pain Source Source: Chart review, Patient History of Present Illness Reason for Visit: The patient is a 48-year-old female who was admitted from the emergency room last evening for occasional episodes of mild chest discomfort. The pain is not clearly related to exertion. She reportedly had a previous workup earlier this year at for it with a normal stress test. She has been pain-free overnight. Troponins have been normal 3. EKG shows no acute ischemic changes. Chest x-ray shows no acute changes. She has raised the concern of possible fluid around her heart. She reports a distant history of possible pericarditis. An echocardiogram done at [facility] last year showed no pericardial effusion. Past Medical History Cardiovascular: Other (possible pericarditis) Pulmonary: Asthma CENTRAL NERVOUS SYSTEM: Other GI: Other Heme/Onc: No pertinent hx Hepatobiliary: No pertinent hx Psych: No pertinent hx Musculoskeletal: Osteoarthritis Infectious disease: No pertinent hx Renal/: No pertinent hx Endocrine: No pertinent hx Past Surgical History Past Surgical History: Arthroscopy, , Other Family History Family History: Hypertension Social History No ALCOHOL: none Drugs: None Lives: with Family Current Medications Current Medications Current Medications Ondansetron HCl (Zofran) 4 mg PRN Q8HRS PRN IV NAUSEA/VOMITING; Start 01/18/19 at 16:15; Stop 01/19/19 at 16:14 Morphine Sulfate (Morphine Sulfate) 2 mg PRN Q2HR PRN IV PAIN; Start 01/18/19 at 16:15; Stop 01/19/19 at 16:14 Albuterol Sulfate (Ventolin Neb Soln) 2.5 mg PRN Q4HRS PRN NEB FOR ASTHMA; Start 01/18/19 at 20:15 Zolpidem Tartrate (Ambien) 5 mg QHS PO Last administered on 01/18/19at 21:39; Start 01/18/19 at 21:00 Albuterol Sulfate (Ventolin Neb Soln) 2.5 mg RTQID NEB ; Start 01/19/19 at 08:00 Pantoprazole Sodium (Protonix) 40 mg DAILYAC PO ; Start 01/19/19 at 07:30; Stop 01/19/19 at 01:54; Status DC Budesonide (Pulmicort) 0.5 mg RTBID NEB ; Start 01/19/19 at 08:00 Pantoprazole Sodium (Protonix) 40 mg PRN DAILY PRN PO GERD Last administered on 01/19/19at 02:01; Start 01/19/19 at 02:00 Acetaminophen (Tylenol) 500 mg PRN Q6HRS PRN PO MILD PAIN / TEMP; Start 01/19/19 at 08:45 Ondansetron HCl (Zofran) 4 mg PRN Q6HRS PRN IVP NAUSEA/VOMITING; Start 01/19/19 at 08:45 Magnesium Sulfate 50 ml @ 25 mls/hr 1X ONCE IV Last administered on 01/19/19at 12:04; Start 01/19/19 at 11:00; Stop 01/19/19 at 12:59; Status DC Active Scripts Active Reported Proventil Hfa Inhaler (Albuterol Sulfate) 6.7 Gm Hfa.aer.ad 1 Puff IH PRN Q4HRS PRN Protonix (Pantoprazole Sodium) 20 Mg Tablet.dr 40 Mg PO DAILY Lunesta (Eszopiclone) 3 Mg Tablet 1 Tab PO QHS Advair 250-50 Diskus (Fluticasone/Salmeterol) 1 Each Disk.w.dev 1 Puff IH HS Allergies Allergies: Coded Allergies: Sulfa (Sulfonamide Antibiotics) (Verified Allergy, Intermediate, 09/03/18) aspirin (Verified Allergy, Intermediate, 09/03/18) cephalexin (Verified Allergy, Intermediate, 09/03/18) corn (Verified Allergy, Intermediate, 09/03/18) doxycycline (Verified Allergy, Intermediate, 09/03/18) ibuprofen (Verified Allergy, Intermediate, 09/03/18) latex (Verified Allergy, Intermediate, 09/03/18) ROS Cardiovascular: yes Chest Pain Physical Exam General: Alert HEENT: Atraumatic Lungs: Clear to auscultation Heart: Regular rate Abdomen: Normal bowel sounds Vitals VITALS Vital Signs Date Time Temp Pulse Resp B/P (MAP) Pulse Ox O2 Delivery O2 Flow Rate FiO2 01/19/19 11:00 98.7 76 16 108/78 (88) 97 Room Air 98.7 Labs Labs Laboratory Tests Test 01/18/19 14:39 01/18/19 19:40 01/19/19 00:01 01/19/19 06:30 White Blood Count 6.0 x10^3/uL (4.0-11.0) Red Blood Count 4.04 x10^6/uL (3.50-5.40) Hemoglobin 12.2 g/dL (12.0-15.5) Hematocrit 36.1 % (36.0-47.0) Mean Corpuscular Volume 89 fL (79-100) Mean Corpuscular Hemoglobin 30 pg (25-35) Mean Corpuscular Hemoglobin Concent 34 g/dL (31-37) Red Cell Distribution Width 14.2 % (11.5-14.5) Platelet Count 239 x10^3/uL (140-400) Neutrophils (%) (Auto) 62 % (31-73) Lymphocytes (%) (Auto) 26 % (24-48) Monocytes (%) (Auto) 7 % (0-9) Eosinophils (%) (Auto) 5 % (0-3) Basophils (%) (Auto) 1 % (0-3) Neutrophils # (Auto) 3.7 x10^3/uL (1.8-7.7) Lymphocytes # (Auto) 1.5 x10^3/uL (1.0-4.8) Monocytes # (Auto) 0.4 x10^3/uL (0.0-1.1) Eosinophils # (Auto) 0.3 x10^3/uL (0.0-0.7) Basophils # (Auto) 0.0 x10^3/uL (0.0-0.2) D-Dimer (Johanny) 0.45 ug/mlFEU (0.00-0.50) Sodium Level 143 mmol/L (136-145) Potassium Level 4.2 mmol/L (3.5-5.1) Chloride Level 108 mmol/L (98-107) Carbon Dioxide Level 29 mmol/L (21-32) Anion Gap 6 (6-14) Blood Urea Nitrogen 11 mg/dL (7-20) Creatinine 0.9 mg/dL (0.6-1.0) Estimated GFR (Cockcroft-Gault) 80.5 BUN/Creatinine Ratio 12 (6-20) Glucose Level 101 mg/dL (70-99) Calcium Level 8.8 mg/dL (8.5-10.1) Magnesium Level 1.7 mg/dL (1.8-2.4) Total Bilirubin 0.7 mg/dL (0.2-1.0) Aspartate Amino Transf (AST/SGOT) 31 U/L (15-37) Alanine Aminotransferase (ALT/SGPT) 38 U/L (14-59) Alkaline Phosphatase 61 U/L (46-116) Troponin I Quantitative < 0.017 ng/mL (0.000-0.055) < 0.017 ng/mL (0.000-0.055) < 0.017 ng/mL (0.000-0.055) QS-Czf-F-Type Natriuretic Peptide 94 pg/mL (0-124) Total Protein 7.2 g/dL (6.4-8.2) Albumin 3.4 g/dL (3.4-5.0) Albumin/Globulin Ratio 0.9 (1.0-1.7) Urine Collection Type Unknown Urine Color Yellow Urine Clarity Clear Urine pH 5.5 Urine Specific Colome 1.020 Urine Protein Negative mg/dL (NEG-TRACE) Urine Glucose (UA) Negative mg/dL (NEG) Urine Ketones (Stick) Negative mg/dL (NEG) Urine Blood Negative (NEG) Urine Nitrite Negative (NEG) Urine Bilirubin Negative (NEG) Urine Urobilinogen Dipstick 1.0 mg/dL (0.2 mg/dL) Urine Leukocyte Esterase Negative (NEG) Urine RBC 0 /HPF (0-2) Urine WBC 1-4 /HPF (0-4) Urine Squamous Epithelial Cells Many /LPF Urine Bacteria Moderate /HPF (0-FEW) Urine Mucus Marked /LPF Laboratory Tests Test 01/18/19 19:40 01/19/19 00:01 01/19/19 06:30 Troponin I Quantitative < 0.017 ng/mL (0.000-0.055) < 0.017 ng/mL (0.000-0.055) Urine Collection Type Unknown Urine Color Yellow Urine Clarity Clear Urine pH 5.5 Urine Specific Colome 1.020 Urine Protein Negative mg/dL (NEG-TRACE) Urine Glucose (UA) Negative mg/dL (NEG) Urine Ketones (Stick) Negative mg/dL (NEG) Urine Blood Negative (NEG) Urine Nitrite Negative (NEG) Urine Bilirubin Negative (NEG) Urine Urobilinogen Dipstick 1.0 mg/dL (0.2 mg/dL) Urine Leukocyte Esterase Negative (NEG) Urine RBC 0 /HPF (0-2) Urine WBC 1-4 /HPF (0-4) Urine Squamous Epithelial Cells Many /LPF Urine Bacteria Moderate /HPF (0-FEW) Urine Mucus Marked /LPF Images Images Chest x-ray. No acute changes. Assessment/Plan Assessment/Plan 1. Chest pain. Pain has resolved. Previous workup reportedly at earlier this year was normal. The patient's pain is relatively atypical. Troponins have been normal 3. EKG shows no acute ischemic changes. Chest x-ray shows no acute findings. Patient reports a possible distant history of pericarditis. Echocardiogram last year done at [place] showed no pericardial effusion. At this time will continue present medications. Would increase activities. We'll check an echocardiogram. If no significant abnormalities on echo the patient may be discharged from a cardiac viewpoint and followed up with her usual outpatient physicians. Thank you for allowing us to participate in the care of your patient. JAMARCUS ALVARADO MD Jan 19, 2019 15:10
--- NOTE | 2019-01-19 17:38 | NUR ---
Discharge Note: ISAI JOSEPH Discharge instructions and discharge home medications reviewed with Patient and a copy given. All questions have been answered and understanding verbalized. The following instructions and handouts were given: Chest pain,cardiac diet, pericarditis. Discontinued iv lines and catheter intact. Patient discharged to home with self-care via private vehicle.
--- NOTE | 2019-01-21 09:20 | CARD ---
MR#: [id number] Date of Study: 01/19/2019 Ordering Physician: JAMARCUS GO, Referring Physician: JAMARCUS GO, Tech: Thu Cuevas RDCS APPROVED REPORT EXAM: Two-dimensional and M-mode echocardiogram with Doppler and color Doppler. Other Information Quality : GoodHR: 61bpm Rhythm : NSR INDICATION Pericardial Effusion Chest Pain 2D DIMENSIONS Left Atrium(2D)3.6 (1.6-4.0cm)IVSd0.7 (0.7-1.1cm) Aortic Root(2D)2.6 (2.0-3.7cm)LVDd4.5 (3.9-5.9cm) LVOT Diameter2.3 (1.8-2.4cm)PWd0.8 (0.7-1.1cm) LA Ipcssj79 (18-58mL)LVDs3.3 (2.5-4.0cm) FS (%) 25.8 %SV46.4 ml LVEF(%)51.0 (>50%)CO2.9 L/min Aortic Valve AoV Peak Ramy.123.1cm/sAoV VTI24.7cm AO Peak GR.6.0mmHgLVOT Peak Ramy.77.5cm/s LVOT VTI 12.20cmAO Mean GR.4mmHg HOSSEIN (VTI)2.10cm2 Mitral Valve MV E Uqtorcdg20.1cm/sMV E Peak Gr.135mmHg MV DECEL [id number] A Pgloebpg81.7cm/s E/A Ratio0.8MV A Ktxninll210eu TDI Lateral E' P. V13.13cm/sMedial E' P. V7.92cm/s E/Lateral E'4.4E/Medial E'7.3 Tricuspid Valve TR P. Jivcfirb617zb/sTR Peak Gr.27mmHg LEFT VENTRICLE The left ventricle is normal size. There is normal left ventricular wall thickness. The left ventricu lar systolic function is normal. The ejection fraction is 50-55%. There is normal LV segmental wall m otion. No left ventricle thrombus noted on this study. There is no ventricular septal defect visualiz ed. There is no left ventricular aneurysm. There is no mass noted in the left ventricle. RIGHT VENTRICLE The right ventricle is normal size. There is normal right ventricular wall thickness. The right ventr icular systolic function is normal. ATRIA The left atrium size is normal. The right atrium size is normal. The interatrial septum is intact wit h no evidence for an atrial septal defect or patent foramen ovale as noted on 2-D or Doppler imaging. AORTIC VALVE The aortic valve is normal in structure and function. Doppler and Color Flow revealed no significant aortic regurgitation. There is no significant aortic valvular stenosis. There is no aortic valvular v egetation. MITRAL VALVE The mitral valve is normal in structure and function. There is no evidence of mitral valve prolapse. There is no mitral valve stenosis. Doppler and Color Flow revealed trace mitral regurgitation. TRICUSPID VALVE The tricuspid valve is normal in structure and function. Doppler and Color Flow revealed trace tricus pid regurgitation. There is no tricuspid valve prolapse or vegetation. There is no tricuspid valve st enosis. PULMONIC VALVE The pulmonary valve is normal in structure and function. Doppler and Color Flow revealed no pulmonic valvular regurgitation. There is no pulmonic valvular stenosis. GREAT VESSELS The aortic root is normal in size. PERICARDIAL EFFUSION There is no evidence of significant pericardial effusion. Critical Notification Critical Value: No <Conclusion> The left ventricle is normal size. The left ventricular systolic function is normal. The ejection fraction is 50-55%. There is no significant aortic valvular stenosis. Doppler and Color Flow revealed no significant aortic regurgitation. Doppler and Color Flow revealed trace mitral regurgitation. Doppler and Color Flow revealed trace tricuspid regurgitation. Signed by : Jamarcus Go MD Electronically Approved : 01/19/2019 18:50:17
== END 2019-01-19 17:15 | disposition home or self-care (01) | DRG 313 ==
LOC: ER 14:06 → 2 SOUTH 15:47
PROVIDERS: ADMIT Internal Medicine; ATTEND Internal Medicine
DX: R07.89 Other chest pain (principal); J45.909 Unspecified asthma, uncomplicated; G25.81 Restless legs syndrome; M19.90 Unspecified osteoarthritis, unspecified site; Z88.2 Allergy status to sulfonamides; Z88.6 Allergy status to analgesic agent; Z88.1 Allergy status to other antibiotic agents; Z91.040 Latex allergy status; Z82.49 Family history of ischemic heart disease and other diseases of the circulatory system; Z98.84 Bariatric surgery status; Z90.710 Acquired absence of both cervix and uterus; Z79.51 Long term (current) use of inhaled steroids
CPT/HCPCS: 36415; 71045; 80053; 81001; 83735; 83880; 84484; 85025; 85379; 87086; 93005; 93306; J3475; 99285-25; G0378

== ENCOUNTER → 2019-09-01 | Outpatient (CLI) | payer BC, OTHER ==
--- NOTE | 2019-09-01 10:41 | CARD ---
MR#: [id number] Date of Study: 09/01/2019 Ordering Physician: MEGHA TEE, Referring Physician: MEGHA TEE, Tech: [facility] APPROVED REPORT EXAM: Two-dimensional and M-mode echocardiogram with Doppler and color Doppler. Other Information Quality : Good INDICATION Pericarditis 2D DIMENSIONS RVDd3.2 (2.9-3.5cm)Left Atrium(2D)3.2 (1.6-4.0cm) IVSd0.9 (0.7-1.1cm)Aortic Root(2D)2.8 (2.0-3.7cm) LVDd4.0 (3.9-5.9cm)LVOT Diameter2.1 (1.8-2.4cm) PWd1.0 (0.7-1.1cm)LVDs2.7 (2.5-4.0cm) FS (%) 33.2 %SV43.3 ml LVEF(%)60.0 (>50%) Aortic Valve AoV Peak Ramy.140.0cm/sAoV VTI23.2cm AO Peak GR.7.8mmHgLVOT Peak Ramy.115.5cm/s AO Mean GR.4mmHgAVA (VMAX)2.80cm2 HOSSEIN (VTI)2.90cm2 Mitral Valve MV E Capjowzb66.4cm/sMV DECEL DHTQ045dg MV A Ekmpfbgf38.8cm/sE/A Ratio1.0 Tricuspid Valve TR P. Bapfmdhj509of/sRAP FUEOQBCU1gaEe TR Peak Gr.49qfFbTKWS26iyWi Pulmonary Vein S1 Forqcsfc02.4cm/sD2 Lwemddpe69.4cm/s LEFT VENTRICLE The left ventricle is normal size. There is normal left ventricular wall thickness. The left ventricu lar systolic function is normal. The Ejection Fraction is 55-60%. There is normal LV segmental wall m otion. The left ventricular diastolic function and filling is normal for age. RIGHT VENTRICLE The right ventricle is normal size. The right ventricular systolic function is normal. ATRIA The left atrium size is normal. The right atrium size is normal. The interatrial septum is intact wit h no evidence for an atrial septal defect or patent foramen ovale as noted on 2-D or Doppler imaging. AORTIC VALVE The aortic valve is normal in structure and function. Doppler and Color Flow revealed no significant aortic regurgitation. There is no significant aortic valvular stenosis. MITRAL VALVE The mitral valve is normal in structure and function. There is no evidence of mitral valve prolapse. There is no mitral valve stenosis. Doppler and Color-flow revealed trace mitral regurgitation. TRICUSPID VALVE The tricuspid valve is normal in structure and function. Doppler and Color Flow revealed trace tricus pid regurgitation. The PA pressure was estimated at 19 mmHg. There is no tricuspid valve stenosis. PULMONIC VALVE The pulmonic valve is not well visualized. Doppler and Color Flow revealed no pulmonic valvular regur gitation. There is no pulmonic valvular stenosis. GREAT VESSELS The aortic root is normal in size. The ascending aorta is normal in size. The IVC is normal in size a nd collapses >50% with inspiration. PERICARDIAL EFFUSION There is no evidence of significant pericardial effusion. Critical Notification Critical Value: No <Conclusion> The left ventricular systolic function is normal. The Ejection Fraction is 55-60%. There is normal LV segmental wall motion. Trace mitral regurgitation. Trace tricuspid regurgitation. The PA pressure was estimated at 19 mmHg. There is no evidence of significant pericardial effusion. Signed by : Matt Huynh, Electronically Approved : 09/01/2019 10:40:50
== END | disposition home or self-care (01) ==
LOC: ECHO 09:39
PROVIDERS: ATTEND Internal Medicine Cardiovascular Disease
DX: I31.9 Disease of pericardium, unspecified (principal)
CPT/HCPCS: 93306

== ENCOUNTER → 2020-05-12 | Outpatient (CLI) | payer BC, MEDICARE ==
--- NOTE | 2020-05-12 11:41 | KCIC ---
XR LT WRIST 3VIEWS, XR FOREARM_LEFT 2 VIEWS 05/12/2020 8:28 AM INDICATION: Fall on 05/08/2020 COMPARISON: None available. TECHNIQUE: 2 views of the left forearm and 3 views the left wrist are provided. FINDINGS/ IMPRESSION: 1. There is focal irregularity involving the cortex of the distal radial with transversely oriented l ucencies suggestive of a minimally displaced fracture. There is adjacent soft tissue swelling. Distal ulna is intact. Proximal radius and ulna are intact. Carpal bones appear intact. 2. Mild osteoarthrosis of the first carpometacarpal joint. Bone mineralization is within normal limit s. Electronically signed by: Brandy Currie MD (05/12/2020 11:38 AM) [id number]
== END ==
LOC: KCIC 08:15
PROVIDERS: ATTEND Family Medicine
DX: M18.12 Unilateral primary osteoarthritis of first carpometacarpal joint, left hand (principal); M89.8X3 Other specified disorders of bone, forearm
CPT/HCPCS: 73090; 73110